=== PATIENT | female | born 1965 ===

== ENCOUNTER 2023-03-08 06:57 | Day surgery (SDC) | payer OTHER ==
[~2023-03-08] VITALS: Ht 152.4 cm; Wt 82.1 kg
[~2023-03-08 06:57] MED LIST: PEPCID40 MG PO; PROTONIX40 MG PO
== END 2023-03-08 18:15 | disposition home or self-care (01) ==
LOC: CIR.AMB 06:57
PROVIDERS: ATTEND Orthopaedic Surgery Hand Surgery
DX: S62.605A Fracture of unspecified phalanx of left ring finger, initial encounter for closed fracture (principal); Z88.6 Allergy status to analgesic agent; Z20.822 Contact with and (suspected) exposure to COVID-19